=== PATIENT | male | born 1960 | race Caucasian/White ===

== ENCOUNTER → 2022-04-22 | Outpatient (CLI) | payer BC ==
--- NOTE | 2022-04-22 08:14 | CT ---
EXAMINATION TYPE: CT knee RT wo con DATE OF EXAM: 04/22/2022 COMPARISON: none HISTORY: Pain CT DLP: 419.5 mGycm Automated exposure control for dose reduction was used. The knee was performed in the axial coronal a nd sagittal planes with bone and soft tissue windows are reviewed. FINDINGS: There is no evidence for displaced fracture or dislocation. Moderate degenerative narrowing is noted of the medial tibiofemoral joint space with mild narrowing noted of the lateral tibiofemoral joint sp daniella. No significant narrowing of the patellofemoral joint space. Spur formation is noted about the ma rgins of the femoral condyles and tibial plateaus as well as within the intercondylar regions. There is no evidence for bony lesion or bony destructive process. No joint effusion. No soft tissue mass ev ident. Mild subchondral sclerosis. IMPRESSION: DEGENERATIVE OSTEOARTHRITIS NOTED.
== END | disposition home or self-care (01) ==
LOC: RADCTMAIN 06:27
PROVIDERS: ATTEND Orthopaedic Surgery Adult Reconstructive Orthopaedic Surgery
DX: M17.11 Unilateral primary osteoarthritis, right knee (principal)